=== PATIENT | female | born 1990 | race Caucasian/White ===

== ENCOUNTER 2024-05-21 02:33 | Emergency (ER) | payer OTHER, SELFPAY ==
[2024-05-21] VITALS (11 sets, daily range): BP systolic 111–121; BP diastolic 64–70; PULSE 64–85; RESP 14–18; TEMP 36.3–36.5; O2SAT 94–99; BMI 25.0
--- NOTE | 2024-05-21 02:31 | ED_ITS ---
Discharge Plan Disposition Patient Disposition: Home, Self-Care Condition: Good Prescriptions Prescriptions: New epinephrine 0.3 mg/0.3 mL auto-injector 0.3 mg IM Q10M PRN (Reason: anaphylaxis) Qty: 2 0RF Rx Instructions: for 2 doses Referrals Follow up/Referrals: Provider,Referral, [Primary Care Provider] - See instructions Activity Restrictions/Add. Instructions Additional Instructions/Restrictions: You were evaluated in the ER and are appropriate for discharge at this time. You had anaphylaxis to Abilify. Stop taking this medication, call the provider who prescribed it and discussed this reaction as well as potential other prescriptions for the problems that medication was treating. Make an appoint with your primary care doctor for reevaluation in a few days. 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 If you have to use your EpiPen, you must immediately go to an ER. Return to the ER with new, worsening, or otherwise concerning symptoms. Clinical Impressions Clinical Impression: Anaphylaxis Print Language Print Language: Paraguayan Discharge ED Provider: Alyse Santana General Adult HPI General Chief complaint: Allergic Reaction Stated complaint: allergic reaction Time Seen by Provider: 05/21/24 02:34 History of Present Illness HPI narrative: 34-year-old female who takes Lexapro daily but was recently started on aripiprazole presents to the ER for concerns of allergic reaction. Patient reports she took her aripiprazole for the second time ever tonight around 9 PM. Approximately 3 hours later she noticed itching in her fingers and hands. She states after that she started noticing swelling of her tongue and lightheadedness. EMS was called. Patient initially wanted to refuse transport however she had variable blood pressures as low as 80s systolic and had a syncopal episode. She also was tachycardic in the low 100s with an oxygen of 88%. Patient was placed on nasal cannula by EMS. She had 1 episode of emesis with EMS. No medications administered in route. Patient states she feels slightly better than she did earlier however she still has itching, nausea, and her tongue still feels swollen. Patient has no history of drug allergies, other allergic reactions, or anaphylaxis. Related Data Previous Rx's ?Medication ?Instructions ?Recorded epinephrine 0.3 mg/0.3 mL 0.3 mg (0.3 mL) IM Q10M PRN 05/21/24 injection, auto-injector anaphylaxis #2 ea Allergies Allergy/AdvReac Type Severity Reaction Status Date / Time aripiprazole [From Abilify] Allergy Severe Anaphylaxis Verified 05/21/24 02:37 [facility] Disclaimer: The information contained in this section may have been updated after the patient was seen, as this information can be updated by other users. Social History Smoking Status: Current every day smoker alcohol intake: never current occupational status: other Travel in the last 8 weeks: None ROS Obtained: Yes All systems reviewed & no additional complaints except as documented Positive ROS per HPI Physical Exam General General appearance: alert and in no apparent distress Head Head exam: atraumatic and normocephalic Eye Eye exam: Present PERRL and EOMI ENT ENT exam: Present mucous membranes moist and other (No swelling of the tongue appreciated on exam, no swelling of the lips or other mucosal membranes) Neck Neck exam: Present normal inspection and full ROM Chest Chest inspection: Present symmetric chest wall rise Respiratory Respiratory exam: Present normal lung sounds bilaterally; Absent respiratory distress, wheezes or stridor Cardiovascular Cardiovascular exam: Present regular rate and normal rhythm Abdominal Exam Abdominal exam: Present soft; Absent distention or tenderness Extremities Exam Extremities exam: Present full ROM Neurological Exam Neurological exam: Present alert and oriented X3; Absent motor sensory deficit Psychiatric Psychiatric exam: Present normal affect and normal mood Skin Skin exam: Present warm, dry and other (Patchy erythematous rash over the arms and legs with few urticaria) Medical Decision Making Shon Inquiry Pt receiving controlled substance: No Vital Signs: 05/21/24 02:33 05/21/24 03:30 05/21/24 03:52 Temperature 97.4 F L Temperature Source Oral Pulse Rate 82 82 Pulse Rate [Left] 74 Respiratory Rate 18 14 Blood Pressure 121/64 121/64 Blood Pressure [Right Arm] 111/69 Blood Pressure Mean [Right Arm] 83 Blood Pressure Source Automatic Cuff Blood Pressure Source [Right Arm] Automatic Cuff Blood Pressure Position Supine Blood Pressure Position [Right Arm] Sitting 02 Sat by Pulse Oximetry 99 99 99 Oxygen Delivery Method Nasal Cannula Nasal Cannula Oxygen Flow Rate (LPM) 4 2 05/21/24 04:00 05/21/24 04:25 05/21/24 05:00 Temperature Temperature Source Pulse Rate 85 82 77 Pulse Rate [Left] Respiratory Rate Blood Pressure 120/66 114/67 112/67 Blood Pressure [Right Arm] Blood Pressure Mean [Right Arm] Blood Pressure Source Blood Pressure Source [Right Arm] Blood Pressure Position Blood Pressure Position [Right Arm] 02 Sat by Pulse Oximetry 99 95 94 L Oxygen Delivery Method Oxygen Flow Rate (LPM) 05/21/24 05:30 05/21/24 05:38 05/21/24 06:00 Temperature Temperature Source Pulse Rate 72 71 75 Pulse Rate [Left] Respiratory Rate 14 Blood Pressure 111/70 111/70 111/68 Blood Pressure [Right Arm] Blood Pressure Mean [Right Arm] Blood Pressure Source Automatic Cuff Blood Pressure Source [Right Arm] Blood Pressure Position Supine Blood Pressure Position [Right Arm] 02 Sat by Pulse Oximetry 95 97 95 Oxygen Delivery Method Room Air Oxygen Flow Rate (LPM) Orders (Tests/Meds): ED MEDICATIONS Generic Name Dose Route Start Last Admin Trade Name Freq PRN Reason Stop Dose Admin Sodium Chloride 10 ml 05/21/24 02:30 Sodium Chloride 0.9% 10ml Flush Syringe IV 06/20/24 02:29 NEEDED PRN Maintain IV Site Discontinued Medications Generic Name Dose Route Start Last Admin Trade Name Freq PRN Reason Stop Dose Admin Diphenhydramine HCl 50 mg 05/21/24 02:30 05/21/24 02:39 Diphenhydramine 50mg/Ml Vial IV 05/21/24 02:31 50 mg ONCE ONE Administration Epinephrine HCl 0.3 mg 05/21/24 02:31 05/21/24 02:47 Epinephrine 1 Mg/Ml Ampul SQ 05/21/24 02:32 0.3 mg ONCE ONE Administration Famotidine 20 mg 05/21/24 02:30 05/21/24 02:39 Famotidine 20mg/2ml Vial IV 05/21/24 02:31 20 mg ONCE ONE Administration Methylprednisolone Sodium Succinate 125 mg 05/21/24 02:30 05/21/24 02:39 Methylprednisolone Sod Succ 125mg Vial IV 05/21/24 02:31 125 mg ONCE ONE Administration Medical Decision Narrative: In summary, this 34-year-old female presents to the emergency department today with allergic reaction. On initial evaluation patient is hemodynamically stable, afebrile, oropharynx clear without findings of swelling, no stridor, no wheezing, patient does have rash and nausea. Differential diagnosis includes but is not limited to anaphylaxis, angioedema though this was not appreciated on exam, medication reaction. Immediately upon my assessment on patient's arrival, I ordered intramuscular epinephrine which was administered to the patient due to findings consistent with anaphylaxis. Patient also received Benadryl, Solu- Medrol, famotidine. Lungs are clear without wheezing and I do not believe she requires albuterol at this time. Patient was starting to feel improved shortly after receiving these medications and was placed into ED observation at 0315 for monitoring of her allergic symptoms as well as to monitor for rebound symptoms. Goal is to preclude unnecessary admission. Patient continued to be on the monitor with stable hemodynamics. She did not have any worsening of her reaction in the ER. All physical exam findings that were present on arrival had resolved. She felt improved and after 4 hours of monitoring since the time of the epinephrine administration was appropriate for discharge since her symptoms have resolved and she had no findings of rebound reaction. Patient was prescribed EpiPen to have in case of future anaphylactic reactions, she was instructed to stop the aripiprazole and call the provider who prescribed it to discuss her reaction and other potential future medications. Patient was given instructions on symptomatic management, follow up instructions, and return precautions for the emergency department. Patient indicated understanding and was discharged in stable condition. Total time in ED observation 3 hours 20 minutes Critical Care Critical Care Time Critical Care Time: Yes Attestation: On , the high probability of a clinically significant, sudden or life threatening deterioration of the following system(s) (cardiac, respiratory) required my full and direct attention, intervention and personal management. The time I documented below is in addition to time spent performing reported procedures but includes the following listed in this critical care notation. Total Time Total Critical Care Time: 35
[2024-05-21] MEDS: METHYLPREDNISOLONE SOD SUCC 125MG VIAL 125 MG IV (02:39)
[2024-05-21] MEDS: FAMOTIDINE 20MG/2ML VIAL 20 MG IV (02:39)
[2024-05-21] MEDS: diphenhydrAMINE 50MG/ML VIAL 50 MG IV (02:39)
[2024-05-21] MEDS: EPINEPHrine 1 MG/ML AMPUL 0.3 MG SQ (02:47)
--- NOTE | 2024-05-21 03:40 | PC.NURSE ---
Pt is resting, VSS no needs at this time
== END 2024-05-21 06:40 | disposition home or self-care (01) ==
PROVIDERS: Emergency Provider Emergency Medicine
DX: T88.6XXA Anaphylactic reaction due to adverse effect of correct drug or medicament properly administered, initial encounter (principal); R42 Dizziness and giddiness; R22.0 Localized swelling, mass and lump, head; R11.0 Nausea; T43.595A Adverse effect of other antipsychotics and neuroleptics, initial encounter
CPT/HCPCS: 96372; 96374; 96375; 99291; J1200; J2919; S0028

== ENCOUNTER 2024-10-15 03:53 | Emergency (ER) | payer OTHER, SELFPAY ==
[2024-10-15 03:54] VITALS: BP 138/84; PULSE 92; RESP 18; TEMP 36.6; O2SAT 95; BMI 25.2
--- NOTE | 2024-10-15 04:01 | [facility].EDGENADL ---
Discharge Plan Disposition Patient Disposition: Home, Self-Care Prescriptions Prescriptions: New prednisone 50 mg tablet 50 mg PO DAILY 5 Days Qty: 5 0RF No Action epinephrine 0.3 mg/0.3 mL auto-injector 0.3 mg IM Q10M PRN (Reason: anaphylaxis) Qty: 2 0RF Rx Instructions: for 2 doses Referrals Follow up/Referrals: Jenelle Cowan APRN [Primary Care Provider] - See instructions Activity Restrictions/Add. Instructions Additional Instructions/Restrictions: Recommend following up with PCP for further assessment. Please take steroids as prescribed. Please use inhaler as needed. Consider [id number] antihistamines. Please return to the ER if your breathing worsens. Clinical Impressions Clinical Impression: Asthma exacerbation Print Language Print Language: Korean Discharge ED Provider: Zelalem Mena General Adult HPI General Chief complaint: Upper Respiratory Infection Stated complaint: SOA, cough, vomiting, body aches Time Seen by Provider: 10/15/24 04:01 History of Present Illness HPI narrative: 34-year-old female with history of exercise-induced asthma as a child presents for a couple weeks of worsening shortness of breath. Reports has been intermittent for months but over the last few days has gotten worse. She saw her PCP and was given albuterol inhaler. She has had a couple of chest x-rays that were unremarkable. She denies any fever at home. Reports nonproductive cough. Came in tonight because her shortness of breath was getting worse. She works at [employer] but denies any significant aerosolized exposures. She reports that she vapes but does not vape very much, reports she used to smoke. Denies any new allergens or exposures at home. Related Data Previous Rx's ?Medication ?Instructions ?Recorded epinephrine 0.3 mg/0.3 mL 0.3 mg (0.3 mL) IM Q10M PRN 05/21/24 injection, auto-injector anaphylaxis #2 ea prednisone 50 mg tablet 50 mg PO DAILY 5 days #5 tabs 10/15/24 Allergies Allergy/AdvReac Type Severity Reaction Status Date / Time aripiprazole (From Abilify) Allergy Severe Anaphylaxis Verified 05/21/24 02:37 [facility] Disclaimer: The information contained in this section may have been updated after the patient was seen, as this information can be updated by other users. Social History (Updated 05/21/24 @ 06:37 by Alyse Santana MD) Smoking Status: Current every day smoker alcohol intake: never current occupational status: other Travel in the last 8 weeks: None Have you lived/traveled outside [place] in past 30 days?: No Contact w/someone who lives/traveled outside [place] past 30 days?: No Exposure to someone with infectious disease in past 14 days?: No Do you have a fever (greater than 100.4 F or 38 C)?: No Have you tested positive for COVID-19: No Exposed to someone with COVID-19 in past 14 days?: No Do you have a sore throat?: No Do you have a cough?: Yes Do you have any weakness?: No Do you have any diarrhea?: No Are you experiencing any unusual bleeding?: No Do you have any muscle aches/pain?: No Do you have any abdominal pain?: No Are you experiencing loss of taste or smell?: No ROS Obtained: Yes All systems reviewed & no additional complaints except as documented Physical Exam General General appearance: alert and in no apparent distress Head Head exam: atraumatic and normocephalic Eye Eye exam: Present normal appearance, PERRL and EOMI ENT ENT exam: Present normal oropharynx and normal external ear exam Neck Neck exam: Present normal inspection and full ROM Chest Chest inspection: Present normal inspection and symmetric chest wall rise; Absent tenderness Respiratory Respiratory exam: Present wheezes (Bilateral); Absent normal lung sounds bilaterally, respiratory distress or prolonged expiratory phase Cardiovascular Cardiovascular exam: Present regular rate and normal rhythm Abdominal Exam Abdominal exam: Present soft; Absent distention, tenderness or guarding Extremities Exam Extremities exam: Present normal inspection; Absent edema or joint swelling Back Exam Back exam: Present normal inspection; Absent tenderness Neurological Exam Neurological exam: Present alert and oriented X3; Absent motor sensory deficit Psychiatric Psychiatric exam: Present normal affect and normal mood Skin Skin exam: Present warm, dry and normal color Lymphatic Lymphatic Findings: no adenopathy Medical Decision Making Medical Records Medical records reviewed: Yes I reviewed the patient's medical records. Screening: Per USPSTF and CDC recommendations, given the prevalence of disease in our region, it is our hospital?s policy to screen for HIV and viral Hepatitis for all patients aged 18 and over and those with ongoing risk factors. Shon Inquiry Pt receiving controlled substance: No Shon was queried for this patient: No Vital Signs: 10/15/24 03:54 Temperature 97.8 F Temperature Source Oral Pulse Rate [Right Brachial] 92 H Respiratory Rate 18 Blood Pressure [Right Arm] 138/84 Blood Pressure Mean [Right Arm] 102 Blood Pressure Source [Right Arm] Automatic Cuff Blood Pressure Position [Right Arm] Supine 02 Sat by Pulse Oximetry 95 Oxygen Delivery Method Room Air Lab Data Lab results reviewed: Yes I reviewed the patient's lab results. Orders (Tests/Meds): ED MEDICATIONS Discontinued Medications Generic Name Dose Route Start Last Admin Trade Name Seema PRN Reason Stop Dose Admin Albuterol Sulfate 2.5 mg 10/15/24 04:14 10/15/24 04:15 Albuterol 0.083% 2.5 Mg/3 Ml Neb IH 10/15/24 04:15 2.5 mg ONCE ONE Administration Prednisone 40 mg 10/15/24 04:12 10/15/24 04:14 Prednisone 20mg Tab PO 10/15/24 04:13 40 mg ONCE ONE Administration ORDERS Category Date Time Status CXR 2 view (NOT portable) [XR chest 2V] Stat Exams 10/15/24 04:56 Completed Medical Decision Narrative: 34-year-old female with reported history of childhood asthma presents for shortness of breath over the last few months to weeks, worsening over the last couple of days. History was obtained via interactive discussion with patient, family. On arrival, patient is [afebrile, hemodynamically stable, satting mid 90s on room air, alert, oriented x4, GCS 15], moving all extremities spontaneously. Full physical exam performed and significant for no significant respiratory distress, patient has bilateral wheezing without prolonged expiratory phase. Differential includes but is not limited to asthma, pneumonia, pulmonary edema, COPD. Patient was given albuterol nebulizer treatment and prednisone for symptomatic management and correction of underlying abnormalities. Workup initiated including 2 view chest x-ray. On re-evaluation, patient [remains afebrile, HD stable.] Continues to sat mid 90s on room air. Reports some improvement in respiratory symptoms. Patient still has wheezing but is improved. Imaging independently interpreted by me and significant for mildly hyperinflated lungs, no focal opacity. See radiology read for full review of final results. IV intervention such as fluids and magnesium was considered, but deemed unnecessary due to patient stability, improvement in symptoms. Given patient history, exam and workup, patient's presentation most likely represents new onset asthma. May related to vaping, environmental exposures etc. I recommend that she continue to follow-up with PCP for further evaluation with PFTs etc. I sent a prescription for prednisone. Patient was discharged in stable condition with return precautions. Procedures Risk/Benefits of Procedure(s) Were Explained: Yes Critical Care Critical Care Time Critical Care Time: No
[2024-10-15] MEDS: predniSONE 20MG TAB 40 MG PO (04:14)
[2024-10-15] MEDS: ALBUTEROL 0.083% 2.5 MG/3 ML NEB IH (04:15)
--- NOTE | 2024-10-15 04:56 | XR_ITS ---
PROCEDURE INFORMATION: Exam: XR Chest Exam date and time: 10/15/2024 4:55 AM Age: 34 years old Clinical indication: Wheezing TECHNIQUE: Imaging protocol: Radiologic exam of the chest. Views: 2 views. COMPARISON: No relevant prior studies available. FINDINGS: Lungs: Unremarkable. No consolidation. Pleural spaces: Unremarkable. No pleural effusion. No pneumothorax. Heart/Mediastinum: Unremarkable. No cardiomegaly. Bones/joints: Unremarkable. IMPRESSION: No acute findings.
[2024-10-15 05:36] VITALS: BP 126/82; PULSE 81; RESP 16; TEMP 36.6; O2SAT 94
== END 2024-10-15 05:40 | disposition home or self-care (01) ==
PROVIDERS: Emergency Provider Emergency Medicine
DX: J45.901 Unspecified asthma with (acute) exacerbation (principal); R06.02 Shortness of breath; R05.9 Cough, unspecified; M79.10 Myalgia, unspecified site; R11.10 Vomiting, unspecified; F17.290 Nicotine dependence, other tobacco product, uncomplicated
CPT/HCPCS: 71046; 94640; 99284; J7613